=== PATIENT | male | born 1935 | race African-American/Black ===

== ENCOUNTER 2017-02-18 13:06 | Inpatient (IN) | payer OTHER ==
[~2017-02-18] VITALS: Ht 157.5 cm; Wt 83.1 kg
[~2017-02-18 13:06] MED LIST: ALBU2TAB4 PO; ASP81EC PO; ATOR20TA PO; CAR125T PO; DILT120T3 PO; GLIP-116 PO; HYDR25TA4 PO; LABE200T18 PO; LISI-646 PO; METF-372 PO; METO25TA5 PO; POTATAB17 PO; TIOTCAP INH
[2017-02-18 15:04] LABS: Basophils # (auto) 0 uL; Basophils % (auto) 0.6 % (0.0-2.0); CONDITION Y; Eosinophils # (auto) 0.1 uL; Eosinophils % (auto) 2.4 % (0.0-7.0); Hematocrit 43.8 % (41.0-53.0); Hemoglobin 14.1 g/dL (13.5-17.5); Lymphocytes # (auto) 1.2 uL; Lymphocytes % (auto) 24.8 % (10.0-50.0); Mean Corpuscular Hemoglobin 27.3 pg (28.0-32.0); Mean Corpuscular Hgb Conc. 32.3 g/dL (32.0-36.0); Mean Corpuscular Volume 84.4 fL (80.0-100.0); Mean Platelet Volume 7.9 fL (7.4-10.4); Monocytes # (auto) 0.5 uL; Monocytes % (auto) 10.6 % (0.0-12.0); Neutrophils % (auto) 61.6 % (37.0-80.0); Platelet Count (auto) 224 10^3/uL (140-450); Red Cell Distribution Width 16.5 % (11.6-16.0); White Blood Cell 4.9 10^3/uL (4.4-10.8)
[2017-02-18 15:29] LABS: Bilirubin, Total 0.7 mg/dL (0.2-1.0); Calcium 8.3 mg/dL (8.5-10.1); Magnesium 2.2 mg/dL (1.6-2.6)
[2017-02-18 15:49] LABS: Potassium 2.8 mmol/L (3.5-5.1)
[2017-02-18] MEDS ORDERED: POTASSIUM CHL 20 Meq TABLET PO ONE (20:15)
[2017-02-18 21:30] LABS: B-Type Natriuretic Peptide 1575.84 pg/mL (0-100)
[2017-02-18 21:39] LABS: Temperature: 24.6 C (20.0-25.0)
[2017-02-19] MEDS ORDERED: ONDANSETRON HCL 4 MG/2 ML VIAL IV PRN (02:00)
[2017-02-19] MEDS ORDERED: POTASSIUM CHL 20 Meq TABLET PO ONE ×2 (02:00→13:00)
[2017-02-19] MEDS ORDERED: DEXTROSE (50%) 50ML SYRG IV PRN (02:00)
[2017-02-19] MEDS ORDERED: ENOXAPARIN SOD 100 MG/1 ML SYRINGE SC ONE (02:00)
[2017-02-19] MEDS ORDERED: FUROSEMIDE 20 MG/2 ML VIAL IV ONE ×2 (02:00→21:15)
[2017-02-19] MEDS ORDERED: NITROGLYCERIN 0.4 MG SL TAB SL PRN (02:00)
[2017-02-19] MEDS ORDERED: TEMAZEPAM 15 MG CAP PO PRN (02:00)
[2017-02-19] MEDS ORDERED: MORPHINE SULF INJ 2 MG/ML SYRINGE 1ML IV PRN (02:00)
[2017-02-19] MEDS ORDERED: HYDROcodone-ACET 5/325MG TAB PO PRN (02:00)
[2017-02-19] MEDS ORDERED: ACETAMINOPHEN 325 MG TAB PO PRN (02:00)
[2017-02-19] MEDS ORDERED: ALBUTEROL SULF 2.5 MG/0.5ML(0.5%) NEB SOLN NEB PRN (02:00)
[2017-02-19] MEDS ORDERED: SODIUM CHLORIDE 0.9 % NEB SOLN 3ML NEB ONE (05:19)
[2017-02-19] MEDS: ACCU-CHEK COMFORT CURVE STRIP VI SCH ×3 (05:56→18:14)
[2017-02-19] MEDS: InsuLIN REG 1unit/0.01ml Soln (100units/ml) SC SCH ×3 (06:04→18:00)
[2017-02-19] MEDS: ASPirin 81 mg TAB PO SCH (09:15)
[2017-02-19] MEDS: METOPROLOL SUCCINATE XL 50 MG TAB PO SCH (09:15)
[2017-02-19] MEDS: DILTIAZEM HCL 120MG ER CAP PO SCH (09:15)
[2017-02-19] MEDS: FAMOTIDINE 20 MG TAB PO SCH ×2 (09:15→22:32)
[2017-02-19] MEDS: LISINOPRIL 20 MG TAB PO SCH (09:15)
[2017-02-19] MEDS ORDERED: LABETALOL HCL 200 MG TAB PO SCH (10:00)
[2017-02-19] MEDS ORDERED: FUROSEMIDE 40 MG/4 ML VIAL IV ONE (13:00)
[2017-02-19 15:11] VITALS: BP 159/64
[2017-02-19 18:26] VITALS: BP 157/101
[2017-02-19 18:49] VITALS: BP 157/101
[2017-02-19] MEDS: FUROSEMIDE 20 MG/2 ML VIAL IV SCH (18:56)
[2017-02-19 20:00] VITALS: BP 158/115
[2017-02-19] MEDS ORDERED: hydrALAZINE HCL 25 MG TAB PO PRN (21:15)
[2017-02-19 21:30] VITALS: BP 158/115
[2017-02-19] MEDS ORDERED: ATORVASTATIN 20 MG TAB PO SCH (22:00)
[2017-02-20] MEDS: InsuLIN REG 1unit/0.01ml Soln (100units/ml) SC SCH ×3 (00:16→12:00)
[2017-02-20] MEDS: ACCU-CHEK COMFORT CURVE STRIP VI SCH ×3 (00:16→12:00)
[2017-02-20 05:00] VITALS: BP 158/105
[2017-02-20 06:13] LABS: Basophils # (auto) 0.1 uL; Basophils % (auto) 1.1 % (0.0-2.0); CONDITION Y; Eosinophils # (auto) 0.2 uL; Eosinophils % (auto) 3.3 % (0.0-7.0); Hematocrit 45.9 % (41.0-53.0); Hemoglobin 15.3 g/dL (13.5-17.5); Lymphocytes # (auto) 1.3 uL; Lymphocytes % (auto) 26.8 % (10.0-50.0); Mean Corpuscular Hemoglobin 27.9 pg (28.0-32.0); Mean Corpuscular Hgb Conc. 33.2 g/dL (32.0-36.0); Mean Corpuscular Volume 84.1 fL (80.0-100.0); Mean Platelet Volume 8.9 fL (7.4-10.4); Monocytes # (auto) 0.7 uL; Monocytes % (auto) 14.4 % (0.0-12.0); Neutrophils # (auto) 2.6 uL; Neutrophils % (auto) 54.4 % (37.0-80.0); Platelet Count (auto) 294 10^3/uL (140-450); Red Cell Distribution Width 16.5 % (11.6-16.0); SUSPECT SEE PRINTOUT; White Blood Cell 4.9 10^3/uL (4.4-10.8)
[2017-02-20] MEDS: FUROSEMIDE 20 MG/2 ML VIAL IV SCH (06:56)
[2017-02-20 09:51] VITALS: BP 167/97
[2017-02-20 09:59] LABS: BUN/Creatinine Ratio 15.1; Calcium 8.2 mg/dL (8.5-10.1); Magnesium 1.8 mg/dL (1.6-2.6)
[2017-02-20] MEDS ORDERED: ENOXAPARIN SOD 40 MG/0.4 ML SYRINGE SC SCH (10:00)
[2017-02-20 10:02] LABS: Potassium 2.6 mmol/L (3.5-5.1)
[2017-02-20] MEDS ORDERED: FUROSEMIDE 20 MG TAB PO ONE (10:15)
[2017-02-20] MEDS ORDERED: POTASSIUM CHL 20 Meq TABLET PO ONE (10:45)
[2017-02-20] MEDS: ASPirin 81 mg TAB PO SCH (11:15)
[2017-02-20] MEDS: LISINOPRIL 20 MG TAB PO SCH (11:17)
[2017-02-20] MEDS: METOPROLOL SUCCINATE XL 50 MG TAB PO SCH (11:19)
[2017-02-20] MEDS: FAMOTIDINE 20 MG TAB PO SCH (11:19)
[2017-02-20] MEDS: DILTIAZEM HCL 120MG ER CAP PO SCH (11:21)
[2017-02-20 14:35] VITALS: BP 160/97
== END 2017-02-20 16:10 | disposition home health service (06) | DRG 291 ==
LOC: ER 13:06 → TELE 13:07 → TELE-E-ADS 02-19 17:41 → TELE-CENTR 02-19 19:00
PROVIDERS: ADMIT Nurse Practitioner; ATTEND Family Medicine
DX: I13.0 Hypertensive heart and chronic kidney disease with heart failure and stage 1 through stage 4 chronic kidney disease, or unspecified chronic kidney disease (principal); I50.43 Acute on chronic combined systolic (congestive) and diastolic (congestive) heart failure; E87.6 Hypokalemia; I48.2 Chronic atrial fibrillation; J44.9 Chronic obstructive pulmonary disease, unspecified; N18.9 Chronic kidney disease, unspecified; E11.22 Type 2 diabetes mellitus with diabetic chronic kidney disease; N40.0 Benign prostatic hyperplasia without lower urinary tract symptoms; E11.65 Type 2 diabetes mellitus with hyperglycemia; Z82.3 Family history of stroke; Z80.9 Family history of malignant neoplasm, unspecified; I25.2 Old myocardial infarction; Z79.82 Long term (current) use of aspirin; Z79.02 Long term (current) use of antithrombotics/antiplatelets; Z79.84 Long term (current) use of oral hypoglycemic drugs; Z87.440 Personal history of urinary (tract) infections; Z82.5 Family history of asthma and other chronic lower respiratory diseases
CPT/HCPCS: 36415; 71020; 80053; 82962; 83735; 83880; 84484; 85025; 85379; 93005; 93306; 94761; 96374; J1815

== ENCOUNTER 2017-04-23 14:30 | Emergency (ER) | payer OTHER ==
[~2017-04-23] VITALS: Ht 157.5 cm; Wt 77.1 kg
[~2017-04-23 14:30] MED LIST changes: -METO25TA5 PO
[2017-04-23 14:58] VITALS: BP 153/87
== END 2017-04-23 21:24 | disposition left against medical advice (07) ==
LOC: ER 14:32
DX: R05 Cough (principal); Z53.21 Procedure and treatment not carried out due to patient leaving prior to being seen by health care provider
CPT/HCPCS: 71020; 93005

== ENCOUNTER 2017-08-01 12:50 | Emergency (ER) | payer OTHER ==
[~2017-08-01] VITALS: Ht 157.5 cm; Wt 90.7 kg
[2017-08-01 13:10] VITALS: BP 131/78
[2017-08-01 13:30] LABS: Hematocrit 44.4 % (41.0-53.0); Hemoglobin 14.6 g/dL (13.5-17.5); Mean Corpuscular Hemoglobin 27.3 pg (28.0-32.0); Mean Corpuscular Hgb Conc. 32.8 g/dL (32.0-36.0); Mean Corpuscular Volume 83.2 fL (80.0-100.0); Mean Platelet Volume 7.6 fL (6.9-10.8); Platelet Count (auto) 230 10^3/uL (140-450); Red Cell Distribution Width 15.2 % (11.8-14.3); White Blood Cell 7.1 10^3/uL (4.4-10.8)
[2017-08-01 13:46] LABS: Urine Bilirubin Negative (Negative); Urine Blood 2+ /uL (Negative); Urine Color Yellow (Yellow); Urine Glucose Normal (Normal); Urine Ketone Negative (Negative); Urine Mucus FEW (None Seen); Urine Nitrite Negative (Negative); Urine RBC 24 /hpf (0 - 3); Urine Squamous Epithelial Cell FEW /hpf (<5); Urine Urobilinogen Normal (Negative); Urine WBC Clumps PRESENT /hpf (None Seen); Urine pH 6.5 (5.0-8.0)
[2017-08-01 13:48] LABS: Albumin 2.9 g/dL (3.4-5.0); BUN/Creatinine Ratio 18.6; Calcium 8.4 mg/dL (8.5-10.1); Metamyelocytes % 0; Myelocytes % 0; Potassium 3.1 mmol/L (3.5-5.1); Promyelocytes % 0; Reactive Lymphocytes 0; Total Protein 7.1 g/dL (6.4-8.2)
[2017-08-01 15:03] LABS: Platelet Estimate Adequate
[2017-08-01] MEDS ORDERED: POTASSIUM CHL 20MEQ/50ML 50 ML IV SCH (15:15)
[2017-08-01] MEDS ORDERED: cefTRIAXone SOD 1,000 MG VL IM ONE (15:15)
[2017-08-01] MEDS ORDERED: POTASSIUM CHL 20 Meq TABLET PO ONE (17:00)
== END 2017-08-01 17:05 | disposition home or self-care (01) ==
LOC: ER 12:50
DX: N39.0 Urinary tract infection, site not specified (principal); N41.9 Inflammatory disease of prostate, unspecified; E87.6 Hypokalemia; E11.22 Type 2 diabetes mellitus with diabetic chronic kidney disease; I12.9 Hypertensive chronic kidney disease with stage 1 through stage 4 chronic kidney disease, or unspecified chronic kidney disease; N18.3 Chronic kidney disease, stage 3 (moderate); J44.9 Chronic obstructive pulmonary disease, unspecified; E78.5 Hyperlipidemia, unspecified; Z79.82 Long term (current) use of aspirin
CPT/HCPCS: 36415; 80053; 81001; 85007; 85027; 94761; 96372; 99284; J0696

== ENCOUNTER 2017-08-06 15:51 | Emergency (ER) | payer OTHER ==
[~2017-08-06] VITALS: Ht 157.5 cm; Wt 77.1 kg
[2017-08-06 16:04] VITALS: BP 108/74
== END 2017-08-06 23:15 | disposition left against medical advice (07) ==
LOC: ER 16:01
DX: N50.819 Testicular pain, unspecified (principal); Z53.21 Procedure and treatment not carried out due to patient leaving prior to being seen by health care provider
CPT/HCPCS: 76870

== ENCOUNTER 2017-08-14 15:23 | Emergency (ER) | payer OTHER ==
[~2017-08-14] VITALS: Ht 157.5 cm; Wt 77.1 kg
[2017-08-14 15:49] VITALS: BP 147/60
== END 2017-08-14 23:52 | disposition left against medical advice (07) ==
LOC: ER 15:26
DX: R10.9 Unspecified abdominal pain (principal); N50.819 Testicular pain, unspecified; Z53.21 Procedure and treatment not carried out due to patient leaving prior to being seen by health care provider

== ENCOUNTER 2017-08-30 13:06 | Inpatient (IN) | payer OTHER ==
[~2017-08-30] VITALS: Ht 154.9 cm; Wt 68.9 kg
[2017-08-30] MEDS ORDERED: SODIUM CHLORIDE 0.9% 1,000 ML IV ONE (13:46)
[2017-08-30 15:41] LABS: Urine Bacteria NONE SEEN /hpf (None Seen); Urine Blood 3+ /uL (Negative); Urine Mucus FEW (None Seen); Urine Specific Gravity 1.019 (1.001-1.035); Urine WBC 365 /hpf (0 - 3); Urine WBC Clumps PRESENT /hpf (None Seen)
[2017-08-30 16:02] LABS: Basophils # (auto) 0 uL; Basophils % (auto) 0.6 % (0.0-2.0); Eosinophils # (auto) 0 uL; Eosinophils % (auto) 0.2 % (0.0-7.0); Hemoglobin 12.7 g/dL (13.5-17.5); Lymphocytes # (auto) 1.2 uL
[2017-08-30 16:04] LABS: Hematocrit 38.4 % (41.0-53.0); Lymphocytes % (auto) 21.3 % (10.0-50.0); Mean Corpuscular Hemoglobin 27.1 pg (28.0-32.0); Mean Corpuscular Hgb Conc. 33.1 g/dL (32.0-36.0); Mean Corpuscular Volume 81.6 fL (80.0-100.0); Monocytes # (auto) 0.6 uL; Monocytes % (auto) 10.5 % (0.0-12.0); Neutrophils # (auto) 3.8 uL; Neutrophils % (auto) 67.4 % (37.0-80.0); Nucleated Red Blood Cells % 0.1 %; Platelet Count (auto) 199 10^3/uL (140-450); Red Cell Distribution Width 16.5 % (11.8-14.3); White Blood Cell 5.6 10^3/uL (4.4-10.8)
[2017-08-30 16:23] LABS: INR 1.11 (0.9-1.15); Partial Thromboplastin Time 28.6 sec (22.64-33.71); Prothrombin Time 12.1 sec (9.37-12.3)
[2017-08-30 16:32] LABS: Albumin 2.5 g/dL (3.4-5.0); BUN/Creatinine Ratio 17.2; Bilirubin, Total 0.9 mg/dL (0.2-1.0); Calcium 7.7 mg/dL (8.5-10.1); Total Protein 6.7 g/dL (6.4-8.2)
[2017-08-30 16:39] LABS: Potassium 2.6 mmol/L (3.5-5.1)
[2017-08-30] MEDS ORDERED: POTASSIUM CHL 20MEQ/100ML 100 ML IV ONE (16:44)
[2017-08-30] MEDS ORDERED: cefTRIAXone 1GM/10ml IVPUSH 10 ML IV ONE (16:45)
[2017-08-30] MEDS ORDERED: ENOXAPARIN SOD 80 MG/0.8ML SYRINGE SC ONE (16:45)
[2017-08-30] MEDS ORDERED: POTASSIUM CHL 10% (20 MEQ/15ML) 15ml ORAL SOLN PO ONE (16:45)
[2017-08-30] MEDS ORDERED: MORPHINE SULFATE 10 MG/ML INJ 1ML SDV IV PRN ×2 (17:00)
[2017-08-30] MEDS: InsuLIN REG 1unit/0.01ml Soln (100units/ml) SC SCH ×2 (17:00→22:00)
[2017-08-30] MEDS ORDERED: TEMAZEPAM 15 MG CAP PO PRN (17:00)
[2017-08-30] MEDS ORDERED: ACETAMINOPHEN 325 MG TAB PO PRN (17:00)
[2017-08-30] MEDS ORDERED: HYDROcodone-ACET 5/325MG TAB PO PRN (17:00)
[2017-08-30] MEDS ORDERED: ONDANSETRON HCL 4 MG/2 ML VIAL IV PRN (17:00)
[2017-08-30] MEDS ORDERED: NITROGLYCERIN 0.4 MG SL TAB SL PRN (17:00)
[2017-08-30] MEDS ORDERED: DEXTROSE (50%) 50ML SYRG IV PRN (17:00)
[2017-08-30] MEDS: POTASSIUM CHL 20MEQ/100ML 100 ML IV SCH ×2 (17:24→20:50)
[2017-08-30] MEDS: ACCU-CHEK COMFORT CURVE STRIP VI SCH ×2 (17:27→22:04)
[2017-08-30] MEDS: FAMOTIDINE 20 MG TAB PO SCH (17:38)
[2017-08-30] MEDS: Boost Glucose Control 8 Ounces PO SCH (17:39)
[2017-08-30] MEDS: glipiZIDE 5 MG TAB PO SCH (17:39)
[2017-08-30 19:01] VITALS: BP 174/84
[2017-08-30] MEDS: SODIUM CHLOR 0.9% PF (SALINE LOCK) 10ML VIAL IV SCH (22:02)
[2017-08-30] MEDS: METOPROLOL TARTRATE 50 MG TAB PO SCH (22:10)
[2017-08-30] MEDS: POTASSIUM CHL 20 Meq TABLET PO SCH (22:10)
[2017-08-30] MEDS: IPRATROPIUM BROM 0.5 MG/2.5ML INH SOL NEB SCH (23:03)
[2017-08-31] MEDS ORDERED: LABETALOL HCL 5 MG/ML ML 20ML VIAL IV PRN (05:45)
[2017-08-31] MEDS: IPRATROPIUM BROM 0.5 MG/2.5ML INH SOL NEB SCH ×3 (05:45→21:56)
[2017-08-31] MEDS: SODIUM CHLOR 0.9% PF (SALINE LOCK) 10ML VIAL IV SCH ×3 (06:56→22:00)
[2017-08-31] MEDS: InsuLIN REG 1unit/0.01ml Soln (100units/ml) SC SCH ×4 (06:59→22:00)
[2017-08-31] MEDS: ACCU-CHEK COMFORT CURVE STRIP VI SCH ×4 (06:59→22:00)
[2017-08-31] MEDS: glipiZIDE 5 MG TAB PO SCH (07:13)
[2017-08-31 07:55] LABS: Basophils # (auto) 0 uL; Eosinophils # (auto) 0 uL; Lymphocytes % (auto) 15.1 % (10.0-50.0); Monocytes # (auto) 0.6 uL
[2017-08-31 07:57] LABS: Basophils % (auto) 0.3 % (0.0-2.0); Eosinophils % (auto) 0.1 % (0.0-7.0); Hematocrit 44.5 % (41.0-53.0); Hemoglobin 14.2 g/dL (13.5-17.5); Mean Corpuscular Hemoglobin 26.6 pg (28.0-32.0); Mean Corpuscular Hgb Conc. 31.9 g/dL (32.0-36.0); Mean Corpuscular Volume 83.3 fL (80.0-100.0); Monocytes % (auto) 8.8 % (0.0-12.0); Neutrophils # (auto) 5.3 uL; Neutrophils % (auto) 75.7 % (37.0-80.0); Nucleated Red Blood Cells % 0.2 %; Platelet Count (auto) 213 10^3/uL (140-450); Red Blood Cells 5.35 10^6/uL (4.5-5.90); Red Cell Distribution Width 16.7 % (11.8-14.3)
[2017-08-31] MEDS: POTASSIUM CHL 20 Meq TABLET PO SCH (08:04)
[2017-08-31] MEDS: DIGOXIN 0.125 MG TAB PO SCH (08:04)
[2017-08-31] MEDS: METOPROLOL TARTRATE 50 MG TAB PO SCH ×2 (08:05→22:00)
[2017-08-31] MEDS: FAMOTIDINE 20 MG TAB PO SCH (08:05)
[2017-08-31] MEDS: MULTIPLE VITAMIN TAB PO SCH (08:05)
[2017-08-31 08:17] LABS: Albumin 2.6 g/dL (3.4-5.0); BUN/Creatinine Ratio 15.3; Bilirubin, Total 0.9 mg/dL (0.2-1.0); Calcium 7.8 mg/dL (8.5-10.1); Potassium 3.3 mmol/L (3.5-5.1); Total Protein 7.3 g/dL (6.4-8.2)
[2017-08-31] MEDS ORDERED: ENOXAPARIN SOD 80 MG/0.8ML SYRINGE SC ONE (08:30)
[2017-08-31] MEDS: Boost Glucose Control 8 Ounces PO SCH ×3 (08:53→17:41)
[2017-08-31] MEDS: cefTRIAXone 1GM/10ml IVPUSH 10 ML IV SCH (09:00)
[2017-08-31] MEDS ORDERED: FUROSEMIDE 40 MG TAB PO SCH (10:00)
[2017-08-31] MEDS ORDERED: METOLAZONE 5 MG TAB PO SCH (10:00)
[2017-08-31] MEDS ORDERED: LIDOCAINE 2% JELLY 11ml (GLYDO) ONE (11:20)
[2017-08-31] MEDS ORDERED: POTASSIUM CHL 20 Meq TABLET PO ONE (11:30)
[2017-08-31] MEDS ORDERED: LIDOCAINE 2% JELLY 11ml (GLYDO) UR ONE (11:30)
[2017-08-31] MEDS: amLODIPine BESYLATE 5 MG TAB PO SCH (15:03)
[2017-08-31 17:00] VITALS: BP 136/77
[2017-08-31] MEDS: FUROSEMIDE 40 MG/4 ML VIAL IV SCH (17:41)
[2017-08-31] MEDS ORDERED: TAMSULOSIN HYDROCHLORIDE 0.4 MG CAP PO SCH (18:00)
[2017-08-31] MEDS: ALBUTEROL SULF 2.5 MG/0.5ML(0.5%) NEB SOLN NEB PRN (21:56)
[2017-08-31 22:00] VITALS: BP 121/55
[2017-09-01 05:00] VITALS: BP 130/64
[2017-09-01] MEDS: SODIUM CHLOR 0.9% PF (SALINE LOCK) 10ML VIAL IV SCH ×2 (05:52→15:32)
[2017-09-01] MEDS: FUROSEMIDE 40 MG/4 ML VIAL IV SCH (05:52)
[2017-09-01] MEDS: ALBUTEROL SULF 2.5 MG/0.5ML(0.5%) NEB SOLN NEB PRN ×2 (05:55→13:49)
[2017-09-01] MEDS: IPRATROPIUM BROM 0.5 MG/2.5ML INH SOL NEB SCH ×2 (05:55→13:49)
[2017-09-01] MEDS: ACCU-CHEK COMFORT CURVE STRIP VI SCH ×2 (06:31→12:18)
[2017-09-01] MEDS: InsuLIN REG 1unit/0.01ml Soln (100units/ml) SC SCH ×2 (06:31→12:19)
[2017-09-01] MEDS: Boost Glucose Control 8 Ounces PO SCH ×2 (08:00→13:21)
[2017-09-01] MEDS ORDERED: LORazepam 0.5 MG TAB PO PRN (08:45)
[2017-09-01 09:00] VITALS: BP 122/70
[2017-09-01] MEDS: FAMOTIDINE 20 MG TAB PO SCH (09:58)
[2017-09-01] MEDS: DIGOXIN 0.125 MG TAB PO SCH (09:58)
[2017-09-01] MEDS: MULTIPLE VITAMIN TAB PO SCH (09:58)
[2017-09-01] MEDS: amLODIPine BESYLATE 5 MG TAB PO SCH (09:59)
[2017-09-01] MEDS ORDERED: AZITHROMYCIN 500MG/ 250ML 250 ML IV SCH (10:00)
[2017-09-01] MEDS: METOPROLOL TARTRATE 50 MG TAB PO SCH (10:00)
[2017-09-01] MEDS ORDERED: FINASTERIDE 5 MG TAB PO SCH (10:00)
[2017-09-01] MEDS: cefTRIAXone 1GM/10ml IVPUSH 10 ML IV SCH (10:00)
[2017-09-01 10:52] LABS: Basophils # (auto) 0.1 uL; Basophils % (auto) 0.9 % (0.0-2.0); Eosinophils # (auto) 0 uL; Eosinophils % (auto) 0.4 % (0.0-7.0); Hematocrit 42.9 % (41.0-53.0); Hemoglobin 13.8 g/dL (13.5-17.5); Lymphocytes # (auto) 1.2 uL; Lymphocytes % (auto) 18.3 % (10.0-50.0); Mean Corpuscular Hemoglobin 26.1 pg (28.0-32.0); Mean Corpuscular Hgb Conc. 32.3 g/dL (32.0-36.0); Mean Corpuscular Volume 80.9 fL (80.0-100.0); Monocytes # (auto) 0.7 uL; Monocytes % (auto) 10.9 % (0.0-12.0); Neutrophils # (auto) 4.4 uL; Neutrophils % (auto) 69.5 % (37.0-80.0); Nucleated Red Blood Cells % 0.1 %; Platelet Count (auto) 250 10^3/uL (140-450); Red Cell Distribution Width 16.3 % (11.8-14.3); White Blood Cell 6.3 10^3/uL (4.4-10.8)
[2017-09-01 11:06] LABS: BUN/Creatinine Ratio 15.3; Calcium 8.1 mg/dL (8.5-10.1); Magnesium 1.9 mg/dL (1.6-2.6)
[2017-09-01 11:20] LABS: Potassium 2.5 mmol/L (3.5-5.1)
[2017-09-01] MEDS ORDERED: MAGNESIUM OXIDE 400 MG TAB PO ONE (12:00)
[2017-09-01] MEDS ORDERED: POTASSIUM CHL 20 Meq TABLET PO ONE ×2 (12:00→15:15)
[2017-09-01 12:48] VITALS: BP 132/70
[2017-09-01 16:02] VITALS: BP 132/70
[2017-09-01 16:57] VITALS: BP 116/63
== END 2017-09-01 18:00 | disposition home health service (06) | DRG 729 ==
LOC: ER 13:06 → OVERFLOW 13:07 → TELE-CENTR 08-31 12:43
PROVIDERS: ADMIT Internal Medicine; ATTEND Family Medicine
DX: N43.3 Hydrocele, unspecified (principal); I50.43 Acute on chronic combined systolic (congestive) and diastolic (congestive) heart failure; E43 Unspecified severe protein-calorie malnutrition; E11.21 Type 2 diabetes mellitus with diabetic nephropathy; I48.0 Paroxysmal atrial fibrillation; E11.69 Type 2 diabetes mellitus with other specified complication; I48.92 Unspecified atrial flutter; E11.22 Type 2 diabetes mellitus with diabetic chronic kidney disease; I42.9 Cardiomyopathy, unspecified; N13.8 Other obstructive and reflux uropathy; I13.0 Hypertensive heart and chronic kidney disease with heart failure and stage 1 through stage 4 chronic kidney disease, or unspecified chronic kidney disease; N39.0 Urinary tract infection, site not specified; J98.11 Atelectasis; E83.51 Hypocalcemia; E87.6 Hypokalemia; N40.1 Benign prostatic hyperplasia with lower urinary tract symptoms; N50.89 Other specified disorders of the male genital organs; N45.3 Epididymo-orchitis; Z68.27 Body mass index [BMI] 27.0-27.9, adult; I70.0 Atherosclerosis of aorta; D63.8 Anemia in other chronic diseases classified elsewhere; E78.5 Hyperlipidemia, unspecified; F03.90 Unspecified dementia, unspecified severity, without behavioral disturbance, psychotic disturbance, mood disturbance, and anxiety; I25.10 Atherosclerotic heart disease of native coronary artery without angina pectoris; J44.9 Chronic obstructive pulmonary disease, unspecified; N18.2 Chronic kidney disease, stage 2 (mild); R31.0 Gross hematuria; Z79.82 Long term (current) use of aspirin; Z80.3 Family history of malignant neoplasm of breast; Z81.8 Family history of other mental and behavioral disorders; Z82.3 Family history of stroke; I25.2 Old myocardial infarction; Z82.49 Family history of ischemic heart disease and other diseases of the circulatory system; Z82.5 Family history of asthma and other chronic lower respiratory diseases; Z83.3 Family history of diabetes mellitus; Z86.73 Personal history of transient ischemic attack (TIA), and cerebral infarction without residual deficits; Z87.440 Personal history of urinary (tract) infections; Z91.19 Patient's noncompliance with other medical treatment and regimen; Z68.28 Body mass index [BMI] 28.0-28.9, adult
CPT/HCPCS: 36415; 71045; 76870; 80048; 80053; 81001; 82962; 83036; 83735; 83880; 84443; 84484; 85025; 85610; 85730; 87081; 87086; 87205; 93005; 93306; 94640; 96361; 96372; 96374; 96376; G0378; J1815; J3480

== ENCOUNTER 2018-01-31 16:51 | Inpatient (IN) | payer OTHER ==
[~2018-01-31] VITALS: Ht 157.5 cm; Wt 78.5 kg
[2018-01-31 18:10] LABS: Urine Bacteria NONE SEEN /hpf (None Seen); Urine Blood Negative /uL (Negative); Urine Mucus FEW (None Seen); Urine Specific Gravity 1.008 (1.001-1.035); Urine WBC 24 /hpf (0 - 3)
[2018-01-31] MEDS ORDERED: IPRATROPIUM BROM 0.5 MG/2.5ML INH SOL NEB ONE (18:15)
[2018-01-31] MEDS ORDERED: methylPREDNISolone SOD SUCC 125 MG/2 ML VL IV ONE (18:15)
[2018-01-31] MEDS ORDERED: cefTRIAXone 1GM/10ml IVPUSH 10 ML IV ONE (18:15)
[2018-01-31] MEDS ORDERED: ALBUTEROL SULF 2.5 MG/0.5ML(0.5%) NEB SOLN NEB ONE (18:15)
[2018-01-31 18:17] LABS: Basophils # (auto) 0 uL; Basophils % (auto) 0.9 % (0.0-2.0); Eosinophils # (auto) 0 uL; Eosinophils % (auto) 0.4 % (0.0-7.0); Hematocrit 36.7 % (41.0-53.0); Hemoglobin 12.1 g/dL (13.5-17.5); Lymphocytes # (auto) 0.8 uL; Lymphocytes % (auto) 18.3 % (10.0-50.0); Mean Corpuscular Hemoglobin 28.1 pg (28.0-32.0); Mean Corpuscular Volume 85.2 fL (80.0-100.0); Monocytes # (auto) 0.5 uL; Monocytes % (auto) 12.9 % (0.0-12.0); Neutrophils # (auto) 2.8 uL; Neutrophils % (auto) 67.5 % (37.0-80.0); Nucleated Red Blood Cells % 0.1 %; Platelet Count (auto) 206 10^3/uL (140-450); Red Blood Cells 4.31 10^6/uL (4.5-5.90); Red Cell Distribution Width 16.6 % (11.8-14.3); White Blood Cell 4.2 10^3/uL (4.4-10.8)
[2018-01-31 18:21] LABS: INR 1.23 (0.9-1.15); Partial Thromboplastin Time 26.1 sec (23.78-33.04)
[2018-01-31 18:30] LABS: Albumin 3.2 g/dL (3.4-5.0); BUN/Creatinine Ratio 17.9; Bilirubin, Total 1.1 mg/dL (0.2-1.0); Calcium 8.4 mg/dL (8.5-10.1); Magnesium 2.5 mg/dL (1.6-2.6); Potassium 3.6 mmol/L (3.5-5.1); Total Protein 6.9 g/dL (6.4-8.2)
[2018-01-31] MEDS ORDERED: cloNIDine HCL 0.1 MG TAB ONE (18:42)
[2018-01-31] MEDS ORDERED: cloNIDine HCL 0.1 MG TAB PO ONE (18:45)
[2018-01-31] MEDS ORDERED: ASPirin 81 mg TAB ONE (18:59)
[2018-01-31] MEDS ORDERED: ASPirin 81 mg TAB PO ONE (19:00)
[2018-01-31 19:09] LABS: Lactic Acid w/Reflex 2.3 mmol/L (0.4-2.0)
[2018-01-31] MEDS ORDERED: FUROSEMIDE 40 MG/4 ML VIAL IV ONE (20:00)
[2018-01-31] MEDS ORDERED: ONDANSETRON HCL 4 MG/2 ML VIAL IV PRN (21:30)
[2018-01-31] MEDS ORDERED: MORPHINE SULF INJ 2 MG/ML SYRINGE 1ML IV PRN (21:30)
[2018-01-31] MEDS ORDERED: HYDROcodone-ACET 5/325MG TAB PO PRN (21:30)
[2018-01-31] MEDS ORDERED: ACETAMINOPHEN 500 MG TAB PO PRN (21:30)
[2018-01-31] MEDS ORDERED: NITROGLYCERIN 0.4 MG SL TAB SL PRN (21:30)
[2018-01-31 21:34] VITALS: BP 165/107
[2018-01-31 22:00] VITALS: BP 153/88
[2018-01-31] MEDS ORDERED: ATORVASTATIN 20 MG TAB PO SCH (22:00)
[2018-01-31] MEDS ORDERED: LEVO50TA7 PO (22:52)
[2018-01-31] MEDS ORDERED: ENAL2.5T PO (22:52)
[2018-01-31] MEDS ORDERED: PRE5T PO (22:52)
[2018-01-31] MEDS ORDERED: QUIN300T3 PO (22:52)
[2018-01-31] MEDS ORDERED: [UNRECOGNIZED DRUG - CODE] PO (22:52)
[2018-01-31] MEDS ORDERED: ALBUAER3 IN (22:52)
[2018-01-31] MEDS ORDERED: POTA10TA51 PO (22:52)
[2018-01-31] MEDS ORDERED: METO-158 PO (22:52)
[2018-01-31] MEDS ORDERED: TAMS0.4C36 PO (22:52)
[2018-01-31] MEDS ORDERED: FUROSEMIDE 20 MG/2 ML VIAL IV SCH (23:00)
[2018-01-31] MEDS: CARVEDILOL 3.125 MG TAB PO SCH (23:25)
[2018-01-31] MEDS: GABAPENTIN 300 MG CAP PO SCH (23:25)
[2018-02-01] MEDS: IPRATROPIUM BROM 0.5 MG/2.5ML INH SOL NEB SCH ×3 (01:02→12:04)
[2018-02-01] MEDS: ALBUTEROL SULF 2.5 MG/0.5ML(0.5%) NEB SOLN NEB SCH ×3 (01:02→12:03)
[2018-02-01 02:06] VITALS: BP 153/88
[2018-02-01 05:03] VITALS: BP 128/57
[2018-02-01] MEDS: GABAPENTIN 300 MG CAP PO SCH (05:38)
[2018-02-01 08:00] LABS: Basophils # (auto) 0 uL; Basophils % (auto) 0.6 % (0.0-2.0); Eosinophils # (auto) 0 uL; Hematocrit 36.4 % (41.0-53.0); Lymphocytes # (auto) 0.4 uL; Lymphocytes % (auto) 9.3 % (10.0-50.0); Mean Corpuscular Hemoglobin 27.9 pg (28.0-32.0); Mean Corpuscular Hgb Conc. 32.8 g/dL (32.0-36.0); Mean Corpuscular Volume 84.8 fL (80.0-100.0); Monocytes # (auto) 0.1 uL; Monocytes % (auto) 2.2 % (0.0-12.0); Neutrophils # (auto) 4.2 uL; Neutrophils % (auto) 87.9 % (37.0-80.0); Platelet Count (auto) 185 10^3/uL (140-450); Red Cell Distribution Width 16.2 % (11.8-14.3); White Blood Cell 4.8 10^3/uL (4.4-10.8)
[2018-02-01 08:08] LABS: BUN/Creatinine Ratio 17.1; Calcium 8.2 mg/dL (8.5-10.1)
[2018-02-01] MEDS ORDERED: POTASSIUM CHL 20 Meq TABLET PO ONE (09:30)
[2018-02-01] MEDS: CARVEDILOL 3.125 MG TAB PO SCH (09:45)
[2018-02-01] MEDS ORDERED: LABETALOL HCL 200 MG TAB PO SCH (10:00)
[2018-02-01] MEDS ORDERED: LISINOPRIL 20 MG TAB PO SCH (10:00)
[2018-02-01] MEDS ORDERED: FUROSEMIDE 40 MG/4 ML VIAL IV SCH (10:00)
[2018-02-01] MEDS ORDERED: ASPirin-EC 81 mg tab PO SCH (10:00)
[2018-02-01 13:04] VITALS: BP 142/74
== END 2018-02-01 13:40 | disposition home or self-care (01) | DRG 291 ==
LOC: ER 16:51 → EDBD 16:51 → TELE 16:52 → TELE-CENTR 22:00
PROVIDERS: ADMIT Nurse Practitioner Family; ATTEND Nurse Practitioner Family
DX: I13.0 Hypertensive heart and chronic kidney disease with heart failure and stage 1 through stage 4 chronic kidney disease, or unspecified chronic kidney disease (principal); I50.43 Acute on chronic combined systolic (congestive) and diastolic (congestive) heart failure; J18.1 Lobar pneumonia, unspecified organism; J44.0 Chronic obstructive pulmonary disease with (acute) lower respiratory infection; J44.1 Chronic obstructive pulmonary disease with (acute) exacerbation; N39.0 Urinary tract infection, site not specified; E78.5 Hyperlipidemia, unspecified; E11.22 Type 2 diabetes mellitus with diabetic chronic kidney disease; E87.6 Hypokalemia; I25.10 Atherosclerotic heart disease of native coronary artery without angina pectoris; N18.9 Chronic kidney disease, unspecified; Z79.82 Long term (current) use of aspirin; Z79.84 Long term (current) use of oral hypoglycemic drugs; Z79.899 Other long term (current) drug therapy; Z80.3 Family history of malignant neoplasm of breast; Z82.3 Family history of stroke; Z82.49 Family history of ischemic heart disease and other diseases of the circulatory system; Z82.5 Family history of asthma and other chronic lower respiratory diseases; Z83.3 Family history of diabetes mellitus; Z99.81 Dependence on supplemental oxygen
CPT/HCPCS: 36415; 71045; 80048; 80053; 81001; 83036; 83605; 83735; 83880; 84443; 84484; 85025; 85610; 85730; 87040; 87077; 87186; 93005; 94640; 94761; 96374; 96375

== ENCOUNTER 2018-03-29 15:52 | Inpatient (IN) | payer MEDICARE, OTHER ==
[~2018-03-29] VITALS: Ht 157.5 cm; Wt 66.3 kg
[~2018-03-29 15:52] MED LIST changes: -ALBU2TAB4 PO; +ALBUAER3 IN; +ENAL2.5T PO; +LEVO50TA7 PO; +METO-158 PO; +POTA10TA51 PO; -POTATAB17 PO; +PRE5T PO; +QUIN300T3 PO; +TAMS0.4C36 PO; +[UNRECOGNIZED DRUG - CODE] PO
[2018-03-29] MEDS ORDERED: FUROSEMIDE 40 MG/4 ML VIAL IV ONE (16:45)
[2018-03-29 17:16] LABS: Basophils # (auto) 0 uL; Basophils % (auto) 0.7 % (0.0-2.0); Eosinophils # (auto) 0 uL; Eosinophils % (auto) 1.1 % (0.0-7.0); Hematocrit 39.4 % (41.0-53.0); Hemoglobin 12.8 g/dL (13.5-17.5); Lymphocytes % (auto) 24.3 % (10.0-50.0); Mean Corpuscular Hemoglobin 28.6 pg (28.0-32.0); Mean Corpuscular Hgb Conc. 32.5 g/dL (32.0-36.0); Monocytes # (auto) 0.6 uL; Monocytes % (auto) 13.8 % (0.0-12.0); Neutrophils # (auto) 2.5 uL; Neutrophils % (auto) 60.1 % (37.0-80.0); Nucleated Red Blood Cells % 0.1 %; Platelet Count (auto) 237 10^3/uL (140-450); Red Blood Cells 4.47 10^6/uL (4.5-5.90); Red Cell Distribution Width 19.3 % (11.8-14.3); White Blood Cell 4.1 10^3/uL (4.4-10.8)
[2018-03-29 17:40] LABS: Albumin 3.6 g/dL (3.4-5.0); BUN/Creatinine Ratio 13.4; Bilirubin, Total 1.4 mg/dL (0.2-1.0); Calcium 8.2 mg/dL (8.5-10.1); Magnesium 2.6 mg/dL (1.6-2.6); Potassium 3.7 mmol/L (3.5-5.1); Total Protein 7.5 g/dL (6.4-8.2)
[2018-03-29] MEDS ORDERED: TEMAZEPAM 15 MG CAP PO PRN (20:30)
[2018-03-29] MEDS ORDERED: LORazepam 2MG/ML-1ML VIAL IV PRN (20:30)
[2018-03-29] MEDS ORDERED: ACETAMINOPHEN 500 MG TAB PO PRN (20:30)
[2018-03-29] MEDS ORDERED: HYDROcodone-ACET 5/325MG TAB PO PRN (20:30)
[2018-03-29 20:37] VITALS: BP 155/106
[2018-03-29] MEDS ORDERED: DEXTROSE (50%) 50ML SYRG IV PRN (20:45)
[2018-03-29] MEDS ORDERED: LORazepam 2MG/ML-1ML VIAL ONE (22:29)
[2018-03-29] MEDS ORDERED: LORazepam 2MG/ML-1ML VIAL IV ONE (22:45)
[2018-03-29] MEDS: CARVEDILOL 12.5 MG TAB PO SCH (23:00)
[2018-03-29] MEDS: ATORVASTATIN 20 MG TAB PO SCH (23:27)
[2018-03-29] MEDS: GABAPENTIN 300 MG CAP PO SCH (23:27)
[2018-03-29] MEDS: ACCU-CHEK COMFORT CURVE STRIP VI SCH (23:27)
[2018-03-29] MEDS: IPRATROPIUM BROM 0.5 MG/2.5ML INH SOL NEB SCH (23:34)
[2018-03-29] MEDS: ALBUTEROL SULF 2.5 MG/0.5ML(0.5%) NEB SOLN NEB SCH (23:34)
[2018-03-29] MEDS: InsuLIN REG 1unit/0.01ml Soln (100units/ml) SC SCH (23:40)
[2018-03-29] MEDS ORDERED: diphenhdrAMINE HCL 50 MG/1 ML VL IV ONE (23:45)
[2018-03-29] MEDS ORDERED: diphenhdrAMINE HCL 50 MG/1 ML VL ONE (23:48)
[2018-03-30] VITALS (12 sets, daily range): BP systolic 105–143; BP diastolic 49–101
[2018-03-30] MEDS ORDERED: FUROSEMIDE 20 MG/2 ML VIAL IV ONE (01:00)
[2018-03-30] MEDS ORDERED: FUROSEMIDE 20 MG TAB ONE (01:11)
[2018-03-30] MEDS: GABAPENTIN 300 MG CAP PO SCH ×3 (06:00→22:00)
[2018-03-30] MEDS: InsuLIN REG 1unit/0.01ml Soln (100units/ml) SC SCH ×4 (06:46→22:00)
[2018-03-30] MEDS: ACCU-CHEK COMFORT CURVE STRIP VI SCH ×4 (06:46→22:00)
[2018-03-30] MEDS: LEVOTHYROXINE SODIUM 50 MCG TAB PO SCH (06:47)
[2018-03-30] MEDS: IPRATROPIUM BROM 0.5 MG/2.5ML INH SOL NEB SCH ×3 (07:06→18:18)
[2018-03-30] MEDS: ALBUTEROL SULF 2.5 MG/0.5ML(0.5%) NEB SOLN NEB SCH ×3 (07:06→18:18)
[2018-03-30] MEDS: CARVEDILOL 12.5 MG TAB PO SCH ×2 (08:00→18:00)
[2018-03-30 08:45] LABS: Basophils # (auto) 0.1 uL; Basophils % (auto) 1.2 % (0.0-2.0); Eosinophils # (auto) 0 uL; Eosinophils % (auto) 0.4 % (0.0-7.0); Hematocrit 36.7 % (41.0-53.0); Hemoglobin 11.8 g/dL (13.5-17.5); Lymphocytes # (auto) 0.7 uL; Lymphocytes % (auto) 16.1 % (10.0-50.0); Mean Corpuscular Hemoglobin 28.2 pg (28.0-32.0); Mean Corpuscular Hgb Conc. 32.2 g/dL (32.0-36.0); Mean Corpuscular Volume 87.6 fL (80.0-100.0); Monocytes # (auto) 0.5 uL; Monocytes % (auto) 10.8 % (0.0-12.0); Neutrophils # (auto) 3.2 uL; Neutrophils % (auto) 71.5 % (37.0-80.0); Nucleated Red Blood Cells % 0.1 %; Platelet Count (auto) 188 10^3/uL (140-450); Red Blood Cells 4.19 10^6/uL (4.5-5.90); Red Cell Distribution Width 18.6 % (11.8-14.3); White Blood Cell 4.5 10^3/uL (4.4-10.8)
[2018-03-30 09:16] LABS: BUN/Creatinine Ratio 13.3; Calcium 8.3 mg/dL (8.5-10.1)
[2018-03-30] MEDS: POTASSIUM CHL 10 Meq TABLET PO SCH (10:00)
[2018-03-30] MEDS ORDERED: FUROSEMIDE 40 MG/4 ML VIAL IV SCH (10:00)
[2018-03-30] MEDS: ASPirin-EC 81 mg tab PO SCH (10:00)
[2018-03-30] MEDS: LISINOPRIL 20 MG TAB PO SCH (10:00)
[2018-03-30] MEDS: FUROSEMIDE 40 MG/4 ML VIAL IV SCH ×2 (10:00→22:00)
[2018-03-30] MEDS ORDERED: ENALAPRILAT 1.25 MG/ML-1ML VIAL IV PRN (12:00)
[2018-03-30] MEDS: POTASSIUM CHL 20MEQ/100ML 100 ML IV SCH ×3 (12:20→14:27)
[2018-03-30] MEDS: ATORVASTATIN 20 MG TAB PO SCH (22:00)
[2018-03-31] VITALS (12 sets, daily range): BP systolic 101–151; BP diastolic 48–84
[2018-03-31] MEDS: IPRATROPIUM BROM 0.5 MG/2.5ML INH SOL NEB SCH ×4 (00:44→19:28)
[2018-03-31] MEDS: ALBUTEROL SULF 2.5 MG/0.5ML(0.5%) NEB SOLN NEB SCH ×3 (00:45→12:39)
[2018-03-31] MEDS: GABAPENTIN 300 MG CAP PO SCH ×3 (06:12→22:05)
[2018-03-31] MEDS: ACCU-CHEK COMFORT CURVE STRIP VI SCH ×4 (06:27→22:05)
[2018-03-31] MEDS: InsuLIN REG 1unit/0.01ml Soln (100units/ml) SC SCH ×4 (06:29→22:10)
[2018-03-31] MEDS: LEVOTHYROXINE SODIUM 50 MCG TAB PO SCH (06:31)
[2018-03-31 07:18] LABS: BUN/Creatinine Ratio 12.8; Calcium 8.2 mg/dL (8.5-10.1); Magnesium 2.1 mg/dL (1.6-2.6)
[2018-03-31 07:21] LABS: Potassium 2.8 mmol/L (3.5-5.1)
[2018-03-31] MEDS ORDERED: POTASSIUM CHL 20 Meq TABLET PO ONE ×2 (09:30→16:00)
[2018-03-31] MEDS: ASPirin-EC 81 mg tab PO SCH (10:01)
[2018-03-31] MEDS: POTASSIUM CHL 10 Meq TABLET PO SCH (10:01)
[2018-03-31] MEDS: CARVEDILOL 12.5 MG TAB PO SCH ×2 (10:01→17:50)
[2018-03-31] MEDS: FUROSEMIDE 40 MG/4 ML VIAL IV SCH ×2 (10:02→22:06)
[2018-03-31] MEDS: LISINOPRIL 20 MG TAB PO SCH (10:02)
[2018-03-31] MEDS: LEVALBUTEROL HCL 1.25 MG/3 ML NEB NEB SCH (19:28)
[2018-03-31] MEDS: ATORVASTATIN 20 MG TAB PO SCH (22:05)
[2018-04-01] VITALS (9 sets, daily range): BP systolic 99–119; BP diastolic 55–94
[2018-04-01] MEDS: IPRATROPIUM BROM 0.5 MG/2.5ML INH SOL NEB SCH ×3 (00:39→12:30)
[2018-04-01] MEDS: LEVALBUTEROL HCL 1.25 MG/3 ML NEB NEB SCH ×3 (00:40→12:30)
[2018-04-01 05:49] LABS: Basophils # (auto) 0 uL; Basophils % (auto) 1.1 % (0.0-2.0); Eosinophils # (auto) 0.1 uL; Eosinophils % (auto) 2.7 % (0.0-7.0); Hematocrit 37.4 % (41.0-53.0); Hemoglobin 12.3 g/dL (13.5-17.5); Lymphocytes # (auto) 0.7 uL; Lymphocytes % (auto) 18.7 % (10.0-50.0); Mean Corpuscular Hemoglobin 28.6 pg (28.0-32.0); Mean Corpuscular Hgb Conc. 32.8 g/dL (32.0-36.0); Mean Corpuscular Volume 87.1 fL (80.0-100.0); Monocytes # (auto) 0.6 uL; Monocytes % (auto) 14.7 % (0.0-12.0); Neutrophils # (auto) 2.4 uL; Neutrophils % (auto) 62.8 % (37.0-80.0); Nucleated Red Blood Cells % 0.1 %; Platelet Count (auto) 189 10^3/uL (140-450); Red Cell Distribution Width 18.4 % (11.8-14.3); White Blood Cell 3.8 10^3/uL (4.4-10.8)
[2018-04-01 06:07] LABS: BUN/Creatinine Ratio 13.8; Calcium 8.2 mg/dL (8.5-10.1); Magnesium 1.7 mg/dL (1.6-2.6)
[2018-04-01 06:24] LABS: Potassium 2.8 mmol/L (3.5-5.1)
[2018-04-01] MEDS: GABAPENTIN 300 MG CAP PO SCH ×2 (06:31→14:38)
[2018-04-01] MEDS: LEVOTHYROXINE SODIUM 50 MCG TAB PO SCH (06:31)
[2018-04-01] MEDS: ACCU-CHEK COMFORT CURVE STRIP VI SCH ×3 (06:31→17:40)
[2018-04-01] MEDS: InsuLIN REG 1unit/0.01ml Soln (100units/ml) SC SCH ×3 (06:32→17:46)
[2018-04-01] MEDS ORDERED: POTASSIUM CHL 20 Meq TABLET PO ONE ×2 (08:15→13:00)
[2018-04-01] MEDS: CARVEDILOL 12.5 MG TAB PO SCH ×2 (08:24→17:39)
[2018-04-01] MEDS: MAGNESIUM SULFATE 1GM/100ML 100 ML IV SCH ×2 (08:24→10:06)
[2018-04-01 08:59] LABS: Urine Specific Gravity 1.009 (1.001-1.035)
[2018-04-01 09:00] LABS: Urine Blood 3+ /uL (Negative); Urine WBC 5 /hpf (0 - 3)
[2018-04-01 09:01] LABS: Urine Bacteria FEW /hpf (None Seen); Urine Mucus FEW (None Seen)
[2018-04-01] MEDS ORDERED: cefTRIAXone 1GM/10ml IVPUSH 10 ML IV SCH (09:15)
[2018-04-01] MEDS: POTASSIUM CHL 10 Meq TABLET PO SCH (10:05)
[2018-04-01] MEDS: LISINOPRIL 20 MG TAB PO SCH (10:06)
[2018-04-01] MEDS: FUROSEMIDE 40 MG/4 ML VIAL IV SCH (10:06)
[2018-04-01] MEDS: ASPirin-EC 81 mg tab PO SCH (10:06)
== END 2018-04-01 18:55 | disposition home health service (06) | DRG 291 ==
LOC: ER 15:52 → TELE-EAST 15:53 → OVERFLOW 03-30 00:58 → TELE 03-30 01:11 → DOU IN ICU 03-30 02:47
PROVIDERS: ADMIT Nurse Practitioner Family; ATTEND Internal Medicine Geriatric Medicine
DX: I13.0 Hypertensive heart and chronic kidney disease with heart failure and stage 1 through stage 4 chronic kidney disease, or unspecified chronic kidney disease (principal); I50.33 Acute on chronic diastolic (congestive) heart failure; J44.1 Chronic obstructive pulmonary disease with (acute) exacerbation; N39.0 Urinary tract infection, site not specified; E87.6 Hypokalemia; D64.9 Anemia, unspecified; E03.9 Hypothyroidism, unspecified; E11.22 Type 2 diabetes mellitus with diabetic chronic kidney disease; E78.5 Hyperlipidemia, unspecified; F03.90 Unspecified dementia, unspecified severity, without behavioral disturbance, psychotic disturbance, mood disturbance, and anxiety; M47.894 Other spondylosis, thoracic region; I70.0 Atherosclerosis of aorta; I25.10 Atherosclerotic heart disease of native coronary artery without angina pectoris; N18.9 Chronic kidney disease, unspecified; Z79.4 Long term (current) use of insulin; Z79.82 Long term (current) use of aspirin; Z79.899 Other long term (current) drug therapy; Z80.3 Family history of malignant neoplasm of breast; Z82.3 Family history of stroke; Z82.49 Family history of ischemic heart disease and other diseases of the circulatory system; Z82.5 Family history of asthma and other chronic lower respiratory diseases; Z83.3 Family history of diabetes mellitus; Z99.81 Dependence on supplemental oxygen; Z80.9 Family history of malignant neoplasm, unspecified; Z81.1 Family history of alcohol abuse and dependence; Z81.8 Family history of other mental and behavioral disorders
CPT/HCPCS: 36415; 36600; 71045; 71046; 80048; 80053; 81001; 82805; 82962; 83036; 83735; 83880; 84443; 84484; 85025; 87081; 93005; 93306; 94640; 96374; 96375; 96376; 97116; 97530; J0696; J1815; J3480

== ENCOUNTER 2018-08-15 15:04 | Emergency (ER) | payer OTHER ==
[~2018-08-15] VITALS: Ht 160 cm; Wt 65.8 kg
[2018-08-15 15:15] VITALS: BP 145/73
== END 2018-08-15 16:24 | disposition home or self-care (01) ==
LOC: ER 15:04
DX: E11.22 Type 2 diabetes mellitus with diabetic chronic kidney disease (principal); I13.0 Hypertensive heart and chronic kidney disease with heart failure and stage 1 through stage 4 chronic kidney disease, or unspecified chronic kidney disease; N18.9 Chronic kidney disease, unspecified; I50.9 Heart failure, unspecified; I25.10 Atherosclerotic heart disease of native coronary artery without angina pectoris; J44.9 Chronic obstructive pulmonary disease, unspecified; E78.5 Hyperlipidemia, unspecified; I25.2 Old myocardial infarction; Z87.891 Personal history of nicotine dependence; Z79.899 Other long term (current) drug therapy; Z79.84 Long term (current) use of oral hypoglycemic drugs
CPT/HCPCS: 82962